=== PATIENT | female | born 1965 ===

== ENCOUNTER 2017-12-16 22:00 | Emergency (ER) | payer OTHER ==
[2017-12-16 22:13] VITALS: TEMP 97.8
[2017-12-16] MEDS ORDERED: Tdap Vaccine 0.5 ml Vial (10-64 yrs) IM ONE ×2 (22:28→22:47)
--- NOTE | 2017-12-16 22:53 | ED PDOC ---
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 Pt. states she did not lose consciousness. States she sustained laceration to the L upper eyelid. Denies other injury, neck pain, N/V, previous TBI, LOC, anticoagulant use. Past Medical History Reviewed: Historical Data, Nursing Documentation, Vital Signs Vital Signs: Last Vital Signs Temp 97.8 F 12/16/17 22:07 Pulse 80 12/16/17 22:07 Resp 16 12/16/17 22:07 BP 143/87 12/16/17 22:07 Pulse Ox 99 12/16/17 22:07 - Family History Family History: States: No Known Family Hx - Allergies Allergies/Adverse Reactions: Allergies Allergy/AdvReac Type Severity Reaction Status Date / Time No Known Allergies Allergy Verified 12/16/17 22:07 Review of Systems ROS Statement: Except As Marked, All Systems Reviewed And Found Negative Neurological: Positive for: Headache Physical Exam - Physical Exam Appears: Positive for: Well, Non-toxic, No Acute Distress Skin: Positive for: Normal Color, Warm. Negative for: Rash Eye Exam: Positive for: EOMI, PERRL, Other (L upper eyelid with 1cm superficial linear laceration which is non-gaping) ENT: Positive for: Normal ENT Inspection, TM Is/Are (no hemotympanum b/l) Neck: Positive for: Normal, Painless ROM Back: Positive for: Normal Inspection. Negative for: L CVA Tenderness, R CVA Tenderness, Vertebral Tenderness (including cervical spine tenderness) Neurologic/Psych: Positive for: Alert, Oriented, Gait (steady, unassisted). Negative for: Aphasia, Facial Droop - ECG O2 Sat by Pulse Oximetry: 99 - Progress ED Course And Treament: Tetanus prophylaxis administered (pt. not UTD), CT head w/o contrast ordered. Pt. was given wound care instructions using bill of lading clerk #[id number] Procedures - Time-Out Type of Procedure: laceration repair Site of Procedure: L upper eyelid Correct Patient (with visual ID + MR# on ID Band): Yes Correct Procedure: Yes Correct Site Marked: Yes PA/Tech: Dara KING - Laceration/Wound Repair laceration Wound Length (cm): 1 Wound's Depth, Shape: superficial, linear Wound Explored: clean Irrigated w/ Saline (ccs): 50 Wound Repaired With: Skin adhesive Wound Complexity: Simple Disposition - Clinical Impression Clinical Impression: Head injury, Facial laceration - Patient ED Disposition Is Patient to be Admitted: No - Disposition Disposition: Transfer of Care (Signed out to Anabel KING pending CT results) Disposition Time: 20:00 Condition: STABLE Instructions: Laceration Repair With Glue (DC), Closed Head Injury (DC) Forms: [employer] ([place]) Print Language: PORTUGUESE
--- NOTE | 2017-12-16 23:48 | ED PDOC ---
- ECG O2 Sat by Pulse Oximetry: 99 Pulse Ox Interpretation: Normal Medical Decision Making Medical Decision Making: Case was signed out to advertising copy writer from [facility] pending CT head results. CT: no acute finding Patient left ED before being informed of CT results. Disposition - Clinical Impression Clinical Impression: Head injury, Facial laceration - POA Present On Arrival: None - Disposition Referrals: [facility] [Outside] Disposition: Left W/O Treatment (Left before treatment complete) Disposition Time: 00:00 Condition: UNKNOWN Instructions: Laceration Repair With Glue (DC), Closed Head Injury (DC) Forms: [employer] ([place]) Print Language: ENGLISH
[2017-12-17 00:18] VITALS: BP 133/81; PULSE 77; RESP 15; O2SAT 97
--- NOTE | 2017-12-17 11:06 | CT ---
Date of service: 12/16/2017 PROCEDURE: CT HEAD WITHOUT CONTRAST. HISTORY: trauma COMPARISON: None available. TECHNIQUE: Axial computed tomography images were obtained through the head/brain without intravenous contrast. Radiation dose: Total exam DLP = 811.45 mGy-cm. This CT exam was performed using one or more of the following dose reduction techniques: Automated exposure control, adjustment of the mA and/or kV according to patient size, and/or use of iterative reconstruction technique. FINDINGS: HEMORRHAGE: No intracranial hemorrhage. BRAIN: Normal kovacs-white matter differentiation and density are appreciated throughout the cerebrum and cerebellum with the brainstem appearing unremarkable as well. There is no mass effect. There is no suspicious extra-axial fluid collection and the midline brain anatomy appears diffusely unremarkable. VENTRICLES: Unremarkable. No hydrocephalus. CALVARIUM: No destructive bony lesion or displaced fracture identified including through the skullbase. PARANASAL SINUSES: Unremarkable as visualized. No significant inflammatory changes. MASTOID AIR CELLS: Unremarkable as visualized. No inflammatory changes. OTHER FINDINGS: None. IMPRESSION: Normal CT of the Head. Concordant preliminary report from [facility], 12/16/2017.
== END 2017-12-17 00:17 | disposition left against medical advice (07) ==
LOC: H.ER 22:00
DX: S01.111A Laceration without foreign body of right eyelid and periocular area, initial encounter (principal); S09.90XA Unspecified injury of head, initial encounter; W01.0XXA Fall on same level from slipping, tripping and stumbling without subsequent striking against object, initial encounter; Y99.0 Civilian activity done for income or pay